=== PATIENT | female | born 1965 | race Caucasian/White ===

== ENCOUNTER → 2016-06-28 | Outpatient (CLI) | payer OTHER ==
[~2016-06-28] MED LIST: BIOTCAP2 PO; CALC-310 PO; EFF/375 PO; MULTTAB58 PO; VITAMIN B12 INJ INJ
--- NOTE | 2016-06-28 16:55 | MAMMOGRAPHY REPORT ---
UNILATERAL LEFT DIGITAL DIAGNOSTIC MAMMOGRAM TOMOSYNTHESIS WITH CAD: 06/28/2016 CLINICAL HISTORY: 50-year-old woman presents for evaluation of the left breast, status post treatmen t for DCIS. This is her first follow-up status post lumpectomy with concurrent reduction mammoplast y and radiation therapy. TECHNIQUE: Left breast CC and MLO 2-D digital and tomosynthesis images, spot magnification left CC a nd ML views were obtained. Current study was also evaluated with a Computer Aided Detection (CAD) s ystem. COMPARISON: Comparison is made to exams dated: 12/22/2015 specimen, 12/22/2015 localization, 6 stereotactic biopsy, 10/22/2015 mammogram, 10/14/2015 mammogram, and 04/03/2012 mammogram - [facility]. BREAST COMPOSITION: There are scattered areas of fibroglandular density in the left breast. FINDINGS: There is a linear scar marker overlying both lower inner quadrant of the left breast. The re is mild diffuse trabecular edema and skin thickening. There are also interval mammoplasty change s. A melissa-shaped metallic biopsy marker is stable in the 9:00 left breast. Best seen on the spot ma gnification views, there are 4-5 clearly identified punctate microcalcifications, some of which loca lize to the dermis on the tomosynthesis images. Although these are probably benign and could be rel ated to surgery, given that they do not have the same amorphous morphology as the patient's biopsy-p roven DCIS, a short interval follow-up is recommended to ensure stability in 6 months. No other migel picious mass, architectural distortion or cluster of microcalcifications is seen elsewhere in the le ft breast. IMPRESSION: ACR-BI-RADS CATEGORY 3: PROBABLY BENIGN There are expected postsurgical and posttreatment changes within the left breast, without definite m ammographic evidence of malignancy. A few punctate microcalcifications are identified in the lower inner posterior left breast for which a short interval follow-up exam including spot magnification v iews is recommended in 6 months. These results and recommendations were discussed with the patient at the time of the exam. Approximately 10% of breast cancers are not detected with mammography. A negative mammographic repor t should not delay biopsy if a clinically suggestive mass is present. Solange Gamino M.D. ay/:06/28/2016 15:25:59 [employer]: Ronit Amador, [facility] letter sent: Follow Up Recommended 3 BI-RADS Code: ACR-BI-RADS Category 3: Probably Benign
== END | disposition home or self-care (01) ==
LOC: C.MAMM 13:51
PROVIDERS: ATTEND Surgery
DX: Z12.31 Encounter for screening mammogram for malignant neoplasm of breast (principal); Z85.3 Personal history of malignant neoplasm of breast; R92.0 Mammographic microcalcification found on diagnostic imaging of breast